=== PATIENT | female | born 1960 | race Caucasian/White ===

== ENCOUNTER 2018-10-18 16:04 | Emergency (ER) | payer BC ==
[2018-10-18 16:37] VITALS: BP 142/72
--- NOTE | 2018-10-18 16:46 | UC ---
Skin Complaint HPI - HPI Summary HPI Summary: Pt c/o erratci "bites" on upper and lower extremities that have been occurring over the last 4 weeks. Pt states that she has checked for insect infestation and has not found anything. Currently has "bite" on her right mid posterior forearm and has erythematous area on left anterior proximal tibia. - History of Current Complaint Chief Complaint: UCSkin Time Seen by Provider: 10/18/18 16:23 Stated Complaint: SKIN COMPLAINT Hx Obtained From: Patient ?: No Onset/Duration: Gradual Onset, Lasting Weeks, Still Present Skin Exposure Onset/Duration: Weeks Ago Timing: Intermittent Episodes Lasting: Onset Severity: Mild Current Severity: Mild Pain Intensity: 5 Location: Discrete Character: Pruritus, Hives, Redness, Raised Aggravating Factor(s): Touch Alleviating Factor(s): Nothing Associated Signs & Symptoms: Positive: Rash Related History: Insect Bite/Sting - Allergy/Home Medications Allergies/Adverse Reactions: Allergies Allergy/AdvReac Type Severity Reaction Status Date / Time codeine Allergy Unknown Nausea Verified 10/18/18 16:25 Penicillins Allergy Unknown Hives Verified 10/18/18 16:24 Home Medications: Home Medications Allopurinol TAB* [Zyloprim 100 MG TAB*] 100 mg PO DAILY PRN 10/18/18 [History Confirmed 10/18/18] Cetirizine* [ZyrTEC 10 MG TAB*] 10 mg PO DAILY 10/18/18 [History Confirmed 10/18] FLUoxetine CAP* [PROzac CAP*] 3 tab PO DAILY 10/18/18 [History Confirmed ] Hydrocortisone 0.5% CM(NF) [Hydrocortisone 0.5% CREAM(NF)] 1 applic .SEE ORDER PRN 10/18/18 [History] Hydroxychloroquine TAB* [Plaquenil TAB*] 200 mg PO BID 10/18/18 [History Confirmed 10/18/18] Losartan TAB* [Cozaar TAB*] 50 mg PO DAILY 10/18/18 [History Confirmed 10/18/18] Montelukast Sodium TAB* [Singulair TAB*] 10 mg PO DAILY 10/18/18 [History Confirmed 10/18/18] Nebivolol HCl [Bystolic] 5 mg PO DAILY 10/18/18 [History Confirmed 10/18/18] amLODIPine TAB* [Norvasc 5 mg TAB*] 5 mg PO BEDTIME 10/18/18 [History Confirmed 10/18/18] PMH/Surg Hx/FS Hx/Imm Hx Previously Healthy: Yes Endocrine History: Dyslipidemia Cardiovascular History: Cardiac Disease, Hypertension Respiratory History: COPD - Surgical History Surgical History: Yes Surgery Procedure, Year, and Place: LEEP PROCEDURE. TOTAL KNEE. [id number]. TUBAL LIGATION. SINUS SURGERY. COLONOSCOPY - Family History Known Family History: Positive: Cardiac Disease - Social History Occupation: Employed Full-time Lives: With Family Alcohol Use: Occasionally Substance Use Type: None Smoking Status (MU): Former Smoker Have You Smoked in the Last Year: No When Did the Patient Quit Smoking/Using Tobacco: 25 YRS AGO - Immunization History Vaccination Up to Date: Yes Review of Systems All Other Systems Reviewed And Are Negative: Yes Constitutional: Positive: Negative Skin: Positive: Rash Eyes: Positive: Negative ENT: Positive: Negative Respiratory: Positive: Negative Cardiovascular: Positive: Negative Gastrointestinal: Positive: Negative Genitourinary: Positive: Negative Motor: Positive: Negative Neurovascular: Positive: Negative Musculoskeletal: Positive: Negative Neurological: Positive: Negative Psychological: Positive: Negative Is Patient Immunocompromised?: No Physical Exam Triage Information Reviewed: Yes Appearance: Well-Appearing Vital Signs: Initial Vital Signs Temp 98 F 10/18/18 16:30 Pulse 58 10/18/18 16:30 Resp 20 10/18/18 16:30 BP 142/72 10/18/18 16:30 Pulse Ox 97 10/18/18 16:30 Vital Signs Reviewed: Yes Eye Exam: Normal ENT Exam: Normal Dental Exam: Normal Neck exam: Normal Respiratory Exam: Normal Cardiovascular Exam: Normal Musculoskeletal Exam: Normal Neurological Exam: Normal Psychological Exam: Normal Skin: Positive: Rashes - right distal posterior forearm, red, raised area with puncture wound similar to insect bite. left anterior LE, jus below knee joint, urticaria Course/Dx - Differential Diagnoses - Skin Complaint Differential Diagnoses: Contact Dermatitis, Scabies, Urticaria - Diagnoses Provider Diagnosis: Urticaria, Insect bite Discharge - Sign-Out/Discharge Documenting (check all that apply): Patient Departure All imaging exams completed and their final reports reviewed: No Studies - Discharge Plan Condition: Stable Disposition: HOME Patient Education Materials: Antihistamine (By mouth), Hydrocortisone (On the skin), Acute Rash (ED), Itchy Skin (ED) Referrals: Gonzalo Xiao MD [Primary Care Provider] - If Needed - Billing Disposition and Condition Condition: STABLE Disposition: Home
== END 2018-10-18 16:54 | disposition home or self-care (01) ==
LOC: UCCORT 16:04
DX: S50.861A Insect bite (nonvenomous) of right forearm, initial encounter (principal); L50.9 Urticaria, unspecified; I10 Essential (primary) hypertension; J44.9 Chronic obstructive pulmonary disease, unspecified; Z87.891 Personal history of nicotine dependence; Z88.5 Allergy status to narcotic agent; Z88.0 Allergy status to penicillin; Z79.899 Other long term (current) drug therapy; W57.XXXA Bitten or stung by nonvenomous insect and other nonvenomous arthropods, initial encounter; Y92.9 Unspecified place or not applicable
CPT/HCPCS: 99211; G0463